=== PATIENT | female | born 2000 | race Caucasian/White ===

== ENCOUNTER 2024-01-14 20:47 | Emergency (ER) | payer SELFPAY ==
[~2024-01-14] VITALS: Ht 154.9 cm; Wt 100.0 kg
[2024-01-14 21:17] VITALS: TEMP 98.8
[2024-01-14 21:21] VITALS: BP 124/70; PULSE 86; RESP 18
[2024-01-14] MEDS: KETOROLAC TROMETHAMINE 30 MG/ML VIAL IM ONE (23:43)
== END 2024-01-15 00:09 | disposition home or self-care (01) ==
LOC: EMS 20:47
DX: S80.02XA Contusion of left knee, initial encounter (principal); J45.909 Unspecified asthma, uncomplicated; F12.90 Cannabis use, unspecified, uncomplicated; Z98.890 Other specified postprocedural states; X58.XXXA Exposure to other specified factors, initial encounter; Y93.89 Activity, other specified; Y92.89 Other specified places as the place of occurrence of the external cause; Y99.8 Other external cause status
CPT/HCPCS: 99283; 73564; 96372; J1885

== ENCOUNTER 2025-02-10 14:13 | Emergency (ER) | payer OTHER ==
[~2025-02-10] VITALS: Ht 154.9 cm; Wt 104.5 kg
[2025-02-10 14:51] LABS: BASOPHILS % (AUTO) 0.5 % (0.0-2.0); EOSINOPHILS % (AUTO) 1.2 % (1.0-6.0); HEMOGLOBIN 11.3 g/dL (12.0-16.0); LYMPHOCYTES # (AUTO) 3.2 K/uL (1.0-4.8); LYMPHOCYTES % (AUTO) 34.3 % (22.0-44.0); MEAN CORPUSCULAR HEMOGLOBIN 25.8 pg (26.0-34.0); MEAN CORPUSCULAR HGB CONC 32.2 G/dL (31.0-37.0); MEAN CORPUSCULAR VOLUME 80 fL (80-100); MONOCYTES # (AUTO) 0.4 K/uL (0.1-1.0); MONOCYTES % (AUTO) 4.1 % (2.0-9.0); NEUTROPHILS # (AUTO) 5.5 K/uL (1.8-7.7); NEUTROPHILS % (AUTO) 59.9 % (40.0-70.0); PLATELET COUNT (AUTO) 273 K/uL (150-450); RED BLOOD CELL COUNT(AUTO) 4.36 MIL/uL (4.00-5.20); RED CELL DISTRIBUTION WIDTH 15.9 % (11.5-14.5); WHITE BLOOD COUNT (AUTO) 9.2 K/uL (4.5-11.0)
[2025-02-10 15:00] LABS: ANION GAP 9 mmol/L (8-16); CALCIUM, TOTAL 8.8 mg/dL (8.8-10.5); CARBON DIOXIDE 26 mmol/L (22-29); CHLORIDE 105 mmol/L (98-107); CREATININE 0.52 mg/dL (0.60-1.30); GLOMERULAR FILTR. RATE CALC > 60 mL/min (>60); GLUCOSE,RANDOM 98 mg/dL (70-110); LIPASE 34 U/L (16-77); POTASSIUM 4.1 mmol/L (3.5-5.1); SODIUM SERUM 140 mmol/L (136-145); UREA NITROGEN, BLOOD 13 mg/dL (7-18)
[2025-02-10] MEDS ORDERED: IBUP-1554 PO (16:14)
[2025-02-10 16:56] VITALS: BP 136/79; PULSE 66; RESP 18; TEMP 98.6; O2SAT 96
== END 2025-02-10 16:59 | disposition home or self-care (01) ==
LOC: EMS 14:13
DX: N93.9 Abnormal uterine and vaginal bleeding, unspecified (principal); R10.2 Pelvic and perineal pain; F12.90 Cannabis use, unspecified, uncomplicated; J45.909 Unspecified asthma, uncomplicated
CPT/HCPCS: 80048; 83690; 84703; 85025; 99283

== ENCOUNTER 2025-04-11 11:55 | Emergency (ER) | payer OTHER ==
[~2025-04-11] VITALS: Ht 154.9 cm; Wt 109.1 kg
[~2025-04-11 11:55] MED LIST: IBUP-1554 PO
[2025-04-11 12:01] VITALS: TEMP 98.6
[2025-04-11 12:14] VITALS: BP 116/69; PULSE 66; RESP 16; O2SAT 98
[2025-04-11] MEDS: HYDROCODONE/ACETAMINOPHEN 5-325 MG TABLET PO ONE (12:45)
[2025-04-11] MEDS: IBUPROFEN 400 MG TABLET PO ONE (12:45)
[2025-04-11] MEDS: AMOX TR/POT CLAV 875 MG/125 MG TABLET PO ONE (12:45)
[2025-04-11] MEDS ORDERED: HYDR-4072 PO (13:36)
[2025-04-11] MEDS ORDERED: AMOX-457 PO (13:36)
== END 2025-04-11 13:48 | disposition home or self-care (01) ==
LOC: EMS 11:59
DX: K02.9 Dental caries, unspecified (principal); J45.909 Unspecified asthma, uncomplicated; F12.90 Cannabis use, unspecified, uncomplicated
CPT/HCPCS: 99284; Z7502; Z7610